=== PATIENT | male | born 1960 | race Caucasian/White ===

== ENCOUNTER 2016-09-23 01:30 | Inpatient (IN) | payer MEDICARE, MEDICAID ==
[~2016-09-23] VITALS: Ht 172.7 cm; Wt 84.8 kg
[2016-09-23] MEDS ORDERED: MORPHINE SULFATE INJ 2 MG/ML DISP.SYRIN IV ONE (02:30)
[2016-09-23] MEDS ORDERED: IV NS 0.9% 500 ML BAG IV ONE (02:30)
[2016-09-23] MEDS ORDERED: ONDANSETRON HCL/PF 4 MG/2 ML VIAL IVP ONE (02:30)
--- NOTE | 2016-09-23 02:30 | NUR ---
Bari june in [facility] - 09/23/16 at 0259 by IRENE PT REC'D MEDICATION ORDERED.
[2016-09-23] MEDS ORDERED: IV SET PRIMARY 1 EA INFUS.SET MC ONE (02:41)
[2016-09-23] MEDS ORDERED: MORPHINE SULFATE INJ 4 MG/ML DISP.SYRIN ONE (02:41)
[2016-09-23] MEDS ORDERED: ONDANSETRON HCL/PF 4 MG/2 ML VIAL ONE (02:41)
[2016-09-23] MEDS ORDERED: IV NS 0.9% 500 ML IV ONE (02:41)
[2016-09-23 02:44] LABS: BASOPHILS % (AUTO) 0.3 % (0.0-2.0); EOSINOPHILS # (AUTO) 0.1 /CMM (0.0-0.7); EOSINOPHILS % (AUTO) 0.7 % (0.0-6.0); HEMATOCRIT 42 % (39-51); LYMPHOCYTES # (AUTO) 1.8 /CMM (0.8-4.8); LYMPHOCYTES % (AUTO) 20.5 % (20.0-44.0); MEAN CORPUSCULAR HEMOGLOBIN 31 PG (26.0-33.0); MEAN CORPUSCULAR HGB CONC 34 g/dl (31.0-36.0); MEAN CORPUSCULAR VOLUME 93 fL (80-96); MONOCYTES % (AUTO) 11.3 % (2.0-12.0); NEUTROPHILS % (AUTO) 67.2 % (43.0-81.0); PLATELET COUNT (AUTO) 170 /CMM (150-450); RDW COEFFICIENT OF VARIATION 11.8 (11.5-15.0); RED BLOOD CELL COUNT(AUTO) 4.48 MIL/uL (4.5-6.0); WHITE BLOOD COUNT (AUTO) 8.9 K/uL (4.3-11.0)
--- NOTE | 2016-09-23 02:47 | NUR ---
PT REC'D MEDICATION ORDERED.
--- NOTE | 2016-09-23 02:50 | NUR ---
CXR DONE AT THE BEDSIDE.
--- NOTE | 2016-09-23 02:56 | NUR ---
PT LEFT FOR CT VIA GURNEY.
[2016-09-23 02:57] LABS: CALCIUM, SERUM 8.8 mg/dL (8.5-10.1); CARBON DIOXIDE 30 mmol/L (21-32); CHLORIDE 100 mmol/L (98-107); CREATININE 1.2 mg/dL (0.6-1.3); GLUCOSE 108 mg/dL (74-106); POTASSIUM 3.7 mmol/L (3.5-5.1); SODIUM SERUM 135 mmol/L (136-145); UREA NITROGEN, BLOOD 15 mg/dL (7-18)
[2016-09-23 03:01] LABS: ALANINE AMINOTRANSFERASE 36 U/L (12-78); ALBUMIN 3.3 g/dL (3.4-5.0); ALKALINE PHOSPHATASE 115 U/L (46-116); ASPARTATE AMINOTRANSFERASE 20 U/L (15-37); BILIRUBIN,DIRECT 0.3 mg/dL (0.0-0.2); BILIRUBIN,TOTAL 1.2 mg/dL (0.2-1.0); LIPASE 82 U/L (73-393); TOTAL PROTEIN, SERUM 7.6 g/dL (6.4-8.2); TROPONIN I < 0.017 ng/mL (0.00-0.056)
--- NOTE | 2016-09-23 03:05 | NUR ---
PT RETURNED FROM CT.
[2016-09-23] MEDS ORDERED: IV NS 0.9% 250 ML IV ONE (03:33)
[2016-09-23] MEDS ORDERED: CT SWABBABLE VALVE TRANS SET 1 EA INFUS.SET MC ONE (03:34)
[2016-09-23] MEDS ORDERED: IOHEXOL-350 100 ML VIAL IV ONE (03:34)
[2016-09-23 03:37] LABS: APPEARANCE,URINE CLEAR (CLEAR); BILIRUBIN,URINE NEGATIVE (NEGATIVE); BLOOD, URINE TRACE-INTA Ery/uL (NEGATIVE); COLOR,URINE YELLOW (YELLOW); KETONES,URINE 1+ (NEGATIVE); LEUKOCYTE ESTERASE ,URINE NEGATIVE (NEGATIVE); NITRITE, URINE NEGATIVE (NEGATIVE); PROTEIN,URINE NEGATIVE (NEGATIVE); UGLUCOSE NEGATIVE (NEGATIVE); UROBILINOGEN,URINE 0.2 EU/dL (0.2)
--- NOTE | 2016-09-23 03:41 | NUR ---
PT LEFT FOR CT VIA GURNEY.
[2016-09-23 03:50] LABS: BACTERIA,URINE None seen /HPF (None Seen); MUCUS,URINE Rare /LPF (None Seen); RBC,URINE NONE SEEN /HPF (0-2); SQUAMOUS EPITHELIAL CELL,UR Few /HPF (None Seen); WBC,URINE NONE SEEN /HPF (0-3)
--- NOTE | 2016-09-23 04:00 | NUR ---
PT RETURNED FROM CT.
--- NOTE | 2016-09-23 04:20 | NUR ---
PT APPEARS TO BE SLEEPING COMFORTABLY. PT'S O2 SAT DROPPED TO 90% ON RA WHILE SLEEPING. PT PLACED ON 2L O2 VIA NC.
[2016-09-23] MEDS ORDERED: IV SET PRIMARY PUMP SET 1 EA INFUS.SET MC ONE ×2 (04:58→13:30)
[2016-09-23] MEDS ORDERED: HEPARIN INFUSION/D5W 500 ML IV ONE (04:59)
[2016-09-23] MEDS ORDERED: HEPARIN SODIUM, PORCINE 5000 UNITS/1 ML VIAL IV ONE ×2 (05:00→05:30)
[2016-09-23] MEDS ORDERED: HEPARIN INFUSION/D5W 500 ML IV PRN (05:00)
[2016-09-23] MEDS ORDERED: LEVO175T7 PO (05:06)
[2016-09-23] MEDS ORDERED: WARF5TAB6 PO (05:06)
[2016-09-23] MEDS ORDERED: HEPARIN SODIUM, PORCINE 5000 UNITS/1 ML VIAL ONE (05:08)
[2016-09-23 05:28] LABS: PROTHROMBIN TIME 10.7 SECS (9.5-12.7)
--- NOTE | 2016-09-23 05:37 | NUR ---
CALLING REPORT TO JUAN PABLO REY
[2016-09-23 06:00] VITALS: BP 121/72
[2016-09-23] MEDS ORDERED: ACETAMINOPHEN 650 MG/SUPP.RECT RC PRN (06:00)
[2016-09-23] MEDS ORDERED: ONDANSETRON HCL/PF 4 MG/2 ML VIAL IVP PRN (06:00)
--- NOTE | 2016-09-23 06:10 | NUR ---
RN NOTE PT ARRIVED ON UNIT, AAOX4, UNDERSTANDS GE[place]GI[place]. NO C/O OF PAIN OR DISCOMFORT AT THIS TIME. NO SOB NOTED. ON 2L NC. TELE ATTACHED - SR. V/S TAKEN. HEPARIN DRIP INFUSING FROM E.R. AT 1550 U/HR. IV SITE INTACT AND PATENT. PT KEPT CLEAN AND COMFORTABLE, ORIENTATED TO UNIT AND CALL LIGHT. WILL F/U WITH DAY SHIFT RN FOR COMPLETION OF ASSESSMENT.
--- NOTE | 2016-09-23 07:40 | NUR ---
CHANNEL OPENER OPENING NOTES RECEIVED PT ON BED AWAKE, ALERT AND ORIENTED X4, UNDERSTANDS JAPANESE. RESPIRATIONS EVEN AND UNLABORED. NO ACUTE DISTRESS NOTED. ON OXYGEN 2L NC. TELE ATTACHED - SR 75. HEPARIN DRIP INFUSING AT 1550 U/HR. IV SITE INTACT AND PATENT. PT KEPT CLEAN AND COMFORTABLE, BED IN LOWEST POSITION, CALL LIGHT WITHIN REACH. WILL CONTINUE TO MONITOR.
[2016-09-23 08:00] VITALS: BP 127/81
[2016-09-23] MEDS: LEVOTHYROXINE SODIUM 175 MCG TABLET PO SCH (09:00)
[2016-09-23] MEDS: PANTOPRAZOLE 40 MG VIAL IV SCH (09:54)
[2016-09-23 11:38] VITALS: BP 125/85
[2016-09-23] MEDS: MORPHINE SULFATE INJ 2 MG/ML DISP.SYRIN IV PRN (13:59)
[2016-09-23] MEDS: Potassium Chloride 20 MEQ in IV D5/0.45 NACL 1,000 ML IV PRN (14:42)
[2016-09-23 16:00] VITALS: BP 119/74
[2016-09-23] MEDS ORDERED: WARFARIN SODIUM 2 MG TABLET PO SCH (17:00)
--- NOTE | 2016-09-23 17:45 | NUR ---
PERSHING MISSILE CREWMEMBER AT BEDSIDE ATTEMPTED BLOOD DRAW 2X.PT INSTRUCTED PERSHING MISSILE CREWMEMBER TO STOP DUE TO SEVERE PAIN BUT PERSHING MISSILE CREWMEMBER CONTINUED AND PT BECAME PALE AND PERSPIRED IN COLD SWEAT.WENT TO CHECK THE PT AND PT IS STILL VERBALLY RESPONSIVE,RESPONSIVE TO TOUCH AND PAIN.BLOOD SUGAR 117.BP 126/80 HR 68 02 SAT 96%.PT VERBALIZED HE'S SCARED OF NEEDLES AND WAS IN SO MUCH PAIN FROM THE NEEDLE DURING BLOOD DRAW.ASSISTED PT IN THE TOILET AFTER.ABLE TO AMBULATE BY HIMSELF WITH STEADY GAIT.
--- NOTE | 2016-09-23 18:00 | NUR ---
CALLED LAB FOR PENDING PTT AND PT-INR RESULT.DIRECTOR WRITING (EXPERT)ARRIVED TO REDRAW BLOOD.
--- NOTE | 2016-09-23 18:14 | NUR ---
US DUPLEX PORTAL VEIN ULTRASOUND WAS DONE. LIMITED STUDY
--- NOTE | 2016-09-23 19:30 | NUR ---
CALLED LAB C/O RONDA AND REMINDED HER OF THE PENDING PT-INR RESULT ORDERED AT [address] REYES STATED THAT THEY WILL TAKE CARE OF IT.
[2016-09-23 19:40] LABS: INR 1.06 (0.87-1.13); PROTHROMBIN TIME 11.4 SECS (9.5-12.7)
[2016-09-23 20:00] VITALS: BP 117/71
--- NOTE | 2016-09-23 20:51 | NUR ---
TELE/RN NOTES NOTIFIED MD MENA PT. STAT US DUPLEX PORTAL ABDOMEN RESULTED AND READ TO MD THE RESULTS; IMPRESSION: NO EVIDENCE OF PORTAL VEIN THROMBOSIS. ALSO NOTIFIED MD MENA THAT HIS ORDER FOR US DOPPLER ABD VEINS WAS CANCELLED BY US TECH A REPEATED ORDER. PER DR. MENA "IT IS NOT A REPEAT ORDER IT IS A DIFFERENT PROCEDURE AND IF THEY HAS A PROBLEM I SHOULD HAVE BEEN NOTIFIED. I WANT IT ORDERED AGAIN STAT AND IF THEY HAVE A PROBLEM WITH IT CALL ME BACK". WILL CARRY OUT ORDER. WILL CONTINUE TO MONITOR.
--- NOTE | 2016-09-23 21:09 | NUR ---
TELE/RN NOTES CALLED RADIOLOGY AND SPOKE WITH TICKET MAKER: PINKY. PER PINKY PREVIOUS TEST WAS CANCELLED A DUPLICATE BECAUSE IT WAS ORDERED FOR THE SAME REASON AND THE SAME STRUCTURES WOULD BE VIEWED IN BOTH TESTS. PER US TECH PINKY SHE WAS UNABLE TO VIEW THE PANCREAS, AORTA, AND MESENTERIC ARTIERIES AND VEINS DUE TO SURROUNDING GI AIR. NOTIFIED HER DR. MENA WANTS STAT US ABD VEINS TO BE PERFORMED. PER PINKY THE TEST WOULD YEILD THE SAME RESULT AND AN ABDOMINAL CT WITH CONTRAST WOULD SHOW BETTER VISUALIZATION. SHE STATED THERE IS NO REASON TO PERFORM THE TEST. CALLED DR. MENA BACK AND NOTIFIED HIM OF WHAT THE TECH STATED AND HE WANTED TO SPEAK TO HER HIMSELF. TRANSFERRED DR. [place] CALL TO US TECH PINKY TO DISCUSS TEST BEING PERFORMED. WILL CONTINUE TO MONITOR.
--- NOTE | 2016-09-23 21:45 | NUR ---
TELE/RN NOTES CALLED RADIOLOGY AND FOLLOWED UP WITH US TECH PINKY. SHE STATED SHE ORDERED A STAT US DOPPLER ABD VEINS PER DR. MENA ORDERS AND WILL BE UP TO PERFORM THE TEST AFTER SHE IS FINISHED IN THE ER. WILL CONTINUE TO MONITOR.
--- NOTE | 2016-09-23 21:56 | NUR ---
TELE/RN NOTES US TECH PINKY ARRIVED TO PERFORM US DOPPLER ABD. VEINS. WILL CONTINUE TO MONITOR.
[2016-09-23] MEDS: HEPARIN INFUSION/D5W 500 ML IV PRN (22:16)
--- NOTE | 2016-09-23 22:37 | NUR ---
ULTRASOUND DOPPLER ABDOMINAL VEINS DONE PER DR. MENA TO REPEAT DUE TO PREVIOUS ULTRASOUND DONE AT 1814 WAS LIMITED, UNABLE TO VISUALIZED MESENTERIC VEIN ON BOTH ULTRASOUNDS
--- NOTE | 2016-09-23 23:50 | NUR ---
TELE/RN NOTES PT. US DOPPLER ABD. VEINS RESULTED. IMPRESSION: NONDIAGNOTIC EXAMINATION. THE SUPERIOR MESENTERIC ARTERY AND VEIN ARE NOT VISUALIZED DUE TO OVERLYING BOWEL GAS. PATENT MAIN PORTAL VEIN WITH HEPATOPETAL FLOW. CALLED TO NOTIFY MD MENA OF RESULTS. UNABLE TO REACH MD MENA. WILL CONTINUE TO MONITOR.
[2016-09-24] VITALS: BP 119/73
--- NOTE | 2016-09-24 01:23 | NUR ---
TELE/RN NOTES RECEIVED PT. LYING IN BED RESTING. PT. IS EASILY AROUSABLE TO NAME. AWAKE, ALERT AND ORIENTED X4. BREATHING EVEN AND UNLABORED. NO SOB, RESPIRATORY DISTRESS OR COMPLAINTS OF PAIN NOTED. PT. WITH EXTERNAL FIRE CLAIMS ADJUSTER PRESENT AND INTACT. CURRENT RHYTHM = SINUS RHYTHM HR 70. PT. WITH HEPARIN DRIP INFUSING AT 1550 UNITS/HR. EDUCATED PT. ON HEPARIN MEDICATION AND TO NOTIFY NURSE OF ANY S/S OF BLEEDING. PT. VERBALIZED UNDERSTANDING. BED IN LOWEST POSITION, CALL LIGHT WITHIN REACH, WILL CONTINUE TO MONITOR. Addendum: 09/24/16 at 0126 by TRACEY MELENDREZ RN INCORRECT TIME. CORRECT TIME: 09/23/16 @ 0778
[2016-09-24] MEDS: MORPHINE SULFATE INJ 2 MG/ML DISP.SYRIN IV PRN ×3 (02:16→18:24)
[2016-09-24 04:00] VITALS: BP 120/81
[2016-09-24] MEDS: Potassium Chloride 20 MEQ in IV D5/0.45 NACL 1,000 ML IV PRN ×2 (05:51→21:57)
[2016-09-24 06:33] LABS: BASOPHILS % (AUTO) 0.3 % (0.0-2.0); EOSINOPHILS # (AUTO) 0.1 /CMM (0.0-0.7); EOSINOPHILS % (AUTO) 0.6 % (0.0-6.0); HEMATOCRIT 41 % (39-51); HEMOGLOBIN 14.2 g/dL (13.5-17.5); LYMPHOCYTES # (AUTO) 2.1 /CMM (0.8-4.8); LYMPHOCYTES % (AUTO) 22.4 % (20.0-44.0); MEAN CORPUSCULAR HEMOGLOBIN 32 PG (26.0-33.0); MEAN CORPUSCULAR HGB CONC 34 g/dl (31.0-36.0); MEAN CORPUSCULAR VOLUME 93 fL (80-96); MONOCYTES % (AUTO) 10.8 % (2.0-12.0); NEUTROPHILS # (AUTO) 6.2 /CMM (1.8-8.9); NEUTROPHILS % (AUTO) 65.9 % (43.0-81.0); PLATELET COUNT (AUTO) 161 /CMM (150-450); RDW COEFFICIENT OF VARIATION 11.9 (11.5-15.0); RED BLOOD CELL COUNT(AUTO) 4.44 MIL/uL (4.5-6.0); WHITE BLOOD COUNT (AUTO) 9.5 K/uL (4.3-11.0)
[2016-09-24 06:45] LABS: INR 1.05 (0.87-1.13); PROTHROMBIN TIME 11.3 SECS (9.5-12.7)
[2016-09-24 06:51] LABS: BILIRUBIN,TOTAL 0.9 mg/dL (0.2-1.0); CALCIUM, SERUM 8.5 mg/dL (8.5-10.1); CREATININE 1.1 mg/dL (0.6-1.3); MAGNESIUM 2.1 mg/dL (1.8-2.4); PHOSPHORUS 3.2 mg/dL (2.5-4.9); TOTAL PROTEIN, SERUM 7.3 g/dL (6.4-8.2)
--- NOTE | 2016-09-24 07:10 | NUR ---
TELE/RN NOTES PT. LYING IN BED RESTING. BREATHING EVEN AND UNLABORED. NO SOB, RESPIRATORY DISTRESS OR COMPLAINTS OF PAIN NOTED. PT. WITH EXTERNAL JAVA DEVELOPER CONSULTANT PRESENT AND INTACT. CURRENT RHYTHM = SINUS RHYTHM HR 73. PT. WITH HEPARIN DRIP INFUSING AT 1550 UNITS/HR. LATEST PTT RESULTED AT 48. NO CHANGE IN HEPARIN INFUSION RATE ACCORDING TO PROTOCOL. ALL PT. NEEDS MET. BED IN LOWEST POSITION, CALL LIGHT WITHIN REACH, WILL ENDORSE TO DAYSHIFT NURSE FOR CONTINUITY OF CARE.
[2016-09-24 07:25] LABS: THYROID STIMULATING HORMONE 1.725 uIU/mL (0.358-3.74)
[2016-09-24 08:00] VITALS: BP 137/100
--- NOTE | 2016-09-24 08:00 | NUR ---
TECHNOLOGY INSTRUCTOR NOTES RECEIVED REPORT FROM PM SHIFT. PATIENT IS CURRENTLY A/OX4. NO S/S OF ACUTE DISTRESS OR SOB NOTED. PATIENT DENIES PAIN AT THIS TIME. PATIENT ON MONITOR- CURRENT RHYTHM AT SR 76. PATIENT IV ON LEFT AC PATENT AND INTACT, HEPARIN DRIP RUNNING AT 1550 UNITS/HR. NO S/S OF BLEEDING NOTED. NO CHANGE IN HEPARIN INFUSION RATE PER PROTOCOL. PATIENT IV ON RIGHT FOREARM INTACT AND PATENT. BED IS IN LOW LOCKED POSITION. CALL LIGHT WITHIN REACH. WILL CONTINUE TO MONITOR THROUGHOUT SHIFT.
[2016-09-24] MEDS: PANTOPRAZOLE 40 MG VIAL IV SCH (09:14)
[2016-09-24] MEDS: SIMETHICONE 80 MG TAB.CHEW PO PRN ×2 (09:31→14:47)
[2016-09-24] MEDS: LEVOTHYROXINE SODIUM 175 MCG TABLET PO SCH (09:31)
[2016-09-24] MEDS ORDERED: SECONDARY IV SET 1 EA INFUS.SET MC ONE (13:45)
[2016-09-24] MEDS ORDERED: IV SET PRIMARY PUMP SET 1 EA INFUS.SET MC ONE (13:50)
[2016-09-24] MEDS: HEPARIN INFUSION/D5W 500 ML IV PRN (13:51)
[2016-09-24 16:00] VITALS: BP 124/84
[2016-09-24] MEDS ORDERED: NA PHOS,M-B/NA PHOS,DI-BA 1 EA ENEMA RC ONE (17:30)
[2016-09-24] MEDS: DOCUSATE SODIUM 100 MG CAPSULE PO SCH (17:56)
--- NOTE | 2016-09-24 19:08 | NUR ---
MS RN NOTES PATIENT IS CURRENTLY A/OX4. PATIENT IS EXHIBITING ABDOMINAL PAIN. MORPHINE WAS GIVEN AND PATIENT STATED IT HELPED A LITTLE BUT HE STILL FEELS CONSTIPATED. NO S/S OF SOB NOTED. PATIENT IV ON LEFT FOREARM IS INTACT AND PATENT: HEPARIN DRIP RUNNING AT 1550 UNITS/HR (31ML/HR). NO S/S OF BLEEDING NOTED. PATIENT IV ON RIGHT FOREARM INTACT AND PATENT. BED IS IN LOWEST LOCKED POSITION. CALL LIGHT WITHIN REACH. WILL ENDORSE CARE TO PM SHIFT.
--- NOTE | 2016-09-24 19:15 | NUR ---
RN OPEN NOTES RECEIVED PATIENT AWAKE IN BED WITH FAMILY AT BEDSIDE. A/O X4. NO SIGNS OF DISTRESS OR DISCOMFORT. BREATHING EVEN AND UNLABORED. PATIENT STATES HE HAS ABD PAIN 8/10, WAS GIVEN MORPHINE AT 1624 AND STATES IT HAS HELPED A LITTLE. IV ACCESS IN RFA WITH D5W1/2NSKCL RUNNING AND LAC WITH HEPARIN DRIP RUNNING 1550U/HR, INTACT AND PATENT, NO SIGNS OF REDNESS OR INFILTRATION. NO S/S OF BLEEDING. BED IN LOW LOCKED POSITION WITH SIDE RAILS X2. CALL LIGHT WITHIN REACH. WILL CONTINUE TO MONITOR.
[2016-09-24 20:00] VITALS: BP 136/97
--- NOTE | 2016-09-24 22:10 | NUR ---
RN NOTES DR. MENA IN TO SEE PATIENT.
[2016-09-24] MEDS ORDERED: HEPARIN INFUSION/D5W 500 ML IV PRN (22:30)
--- NOTE | 2016-09-25 06:45 | NUR ---
RN CLOSING NOTES PATIENT AWAKE IN BED. A/O X4. NO SIGNS OF DISTRESS OR DISCOMFORT. BREATHING EVEN AND UNLABORED. PAIN IS AT TOLERABLE LEVEL 4/10 IN ABD. IV ACCESS IN RFA WITH D5W1/2NS 2O MEQ KCL RUNNING AND LAC WITH HEPARIN DRIP RUNNING 1550U/HR, INTACT AND PATENT, NO SIGNS OF REDNESS OR INFILTRATION. NO S/S OF BLEEDING. N SIGNIFICANT CHANGES THROUGH THE NIGHT. ALL NEEDS MET. BED IN LOW LOCKED POSITION WITH SIDE RAILS X2. CALL LIGHT WITHIN REACH. WILL ENDORSE TO AM SHIFT FOR CAMRON. .
[2016-09-25 07:14] LABS: INR 1.09 (0.87-1.13); PROTHROMBIN TIME 11.7 SECS (9.5-12.7)
[2016-09-25 07:21] LABS: CALCIUM, SERUM 8.4 mg/dL (8.5-10.1); CREATININE 1.1 mg/dL (0.6-1.3); MAGNESIUM 1.9 mg/dL (1.8-2.4); PHOSPHORUS 3.4 mg/dL (2.5-4.9); POTASSIUM 3.5 mmol/L (3.5-5.1)
--- NOTE | 2016-09-25 07:45 | NUR ---
MS RN NOTES PATIENT IS A/OX4. NO ACUTE DISTRESS NOTED. NO SOB NOTED. PATIENT IS SITTING UP IN BED AND DENIES PAIN AT THIS TIME. RIGHT AC IV PATENT AND INTACT. LEFT AC IV PATENT AND INTACT, HEPARIN DRIP RUNNING AT 1550 UNITS/HR. NO S/S OF BLEEDING NOTED. CALL LIGHT WITHIN REACH. BED IS IN LOWEST LOCKED POSITION. WILL CONTINUE TO MONITOR THROUGHOUT SHIFT.
[2016-09-25 08:00] VITALS: BP 113/87
[2016-09-25 08:11] LABS: BASOPHILS % (AUTO) 0.4 % (0.0-2.0); EOSINOPHILS % (AUTO) 0.4 % (0.0-6.0); HEMATOCRIT 40 % (39-51); HEMOGLOBIN 13.5 g/dL (13.5-17.5); LYMPHOCYTES # (AUTO) 1.2 /CMM (0.8-4.8); LYMPHOCYTES % (AUTO) 17.3 % (20.0-44.0); MEAN CORPUSCULAR HEMOGLOBIN 31 PG (26.0-33.0); MEAN CORPUSCULAR HGB CONC 34 g/dl (31.0-36.0); MEAN CORPUSCULAR VOLUME 93 fL (80-96); MONOCYTES # (AUTO) 0.6 /CMM (0.1-1.30); MONOCYTES % (AUTO) 9.4 % (2.0-12.0); NEUTROPHILS % (AUTO) 72.5 % (43.0-81.0); PLATELET COUNT (AUTO) 176 /CMM (150-450); WHITE BLOOD COUNT (AUTO) 6.9 K/uL (4.3-11.0)
[2016-09-25] MEDS ORDERED: HEPARIN SODIUM, PORCINE 5000 UNITS/1 ML VIAL IV ONE (08:30)
[2016-09-25] MEDS ORDERED: IV SET PRIMARY PUMP SET 1 EA INFUS.SET MC ONE ×2 (08:31→14:26)
[2016-09-25] MEDS: DOCUSATE SODIUM 100 MG CAPSULE PO SCH ×2 (08:38→18:05)
[2016-09-25] MEDS: LEVOTHYROXINE SODIUM 175 MCG TABLET PO SCH (08:38)
[2016-09-25] MEDS: HEPARIN INFUSION/D5W 500 ML IV PRN (08:49)
[2016-09-25] MEDS: PANTOPRAZOLE 40 MG VIAL IV SCH (08:56)
[2016-09-25] MEDS ORDERED: DOCUSATE SODIUM 100 MG CAPSULE PO SCH (09:00)
--- NOTE | 2016-09-25 14:00 | NUR ---
MS RN NOTES PATIENT AND PATIENT'S FAMILY MEMBERS SPOKE TO DR. THOMAS REGARDING PATIENT'S PLAN OF CARE.
[2016-09-25] MEDS: Potassium Chloride 20 MEQ in IV D5/0.45 NACL 1,000 ML IV PRN (14:27)
--- NOTE | 2016-09-25 14:30 | NUR ---
MS RN NOTES PATIENT'S URINE WAS OF REDDISH/ROBERT DISCOLORATION. MD MADE AWARE. CHARGE NURSE MADE AWARE. WILL CONTINUE TO MONITOR.
--- NOTE | 2016-09-25 15:00 | NUR ---
MS RN NOTES APTT, PT, INR LAB RESULTS IN. PATIENT'S APTT WAS AT 60. NO CHANGES MADE TO HEPARIN DRIP SINCE IT IS THERAPEUTIC.
[2016-09-25 16:00] VITALS: BP 123/80
[2016-09-25 16:22] LABS: INR 1.12 (0.87-1.13); PROTHROMBIN TIME 12.1 SECS (9.5-12.7)
[2016-09-25] MEDS: RIVAROXABAN 10 MG TABLET PO SCH (18:06)
--- NOTE | 2016-09-25 18:59 | NUR ---
MS RN NOTES PATIENT IS CURRENTLY A/OX4. NO S.S OF DISTRESS NOTED. NO S/S OF SOB NOTED. PATIENT DENIES PAIN. PATIENT IV ON LEFT AC PATENT AND INTACT. HEPARIN DRIP CURRENTLY RUNNING AT 1700 UNITS/HR (34ML/HR). NO S/S OF BLEEDING NOTED. IV ON RIGHT AC PATENT AND INTACT. ALL PATIENT NEEDS HAVE BEEN MET. BED IS IN LOWEST LOCKED POSITION. CALL LIGHT WITHIN REACH. WILL ENDORSE CARE TO PM SHIFT.
--- NOTE | 2016-09-25 19:15 | NUR ---
RN OPEN NOTES RECEIVED PATIENT AWAKE IN BED. A/O X4. NO SIGNS OF DISTRESS OR DISCOMFORT. BREATHING EVEN AND UNLABORED. DENIES ANY PAIN AT THIS TIME. IV ACCESS IN RAC WITH D5W1/2NSKCL RUNNING AND LAC WITH HEPARIN DRIP RUNNING 1700U/HR, INTACT AND PATENT, NO SIGNS OF REDNESS OR INFILTRATION. PER ISHMAEL ALMEIDA PLAN IS TO D/C HEPARIN DRIP AT 2200. NO S/S OF BLEEDING. BED IN LOW LOCKED POSITION WITH SIDE RAILS X2. CALL LIGHT WITHIN REACH. WILL CONTINUE TO MONITOR.
[2016-09-25 20:00] VITALS: BP 119/84
--- NOTE | 2016-09-25 22:11 | NUR ---
RN NOTES SPOKE WITH DR. MENA TO CLARIFY D/C ORDER FOR HEPARIN AT 2200. PER RAJESH D/C HEPARIN AT 0600 INSTEAD. WILL CARRYOUT ORDERS AND CONTINUE TO MONITOR.
--- NOTE | 2016-09-25 23:44 | NUR ---
RN NOTES SPOKE WITH RAJESH. INFORMED HIM THE PHARMACY HAS ALREADY D/C'D THE HEPARIN IN THE E-MAR AND I AM UNABLE TO HANG A NEW BAG WITHOUT INPUTTING A NEW ORDER FOR THE HEPARIN AND ALSO PATIENT IS CONCERNED ABOUT RECEIVING HEPARIN ALONG WITH GETTING XARELTO, HE WAS TOLD THE HEPARIN WOULD BE D/C'D AT 2200 BECAUSE HE IS NOW GOING TO BE TAKING XARELTO. PER RAJESH, OK TO D/C HEPARIN DRIP AFTER 2200 PREVIOUSLY ORDERED. CHARGE NURSE AWARE. WILL CARRYOUT ORDERS AND CONTINUE TO MONITOR.
[2016-09-26] MEDS ORDERED: IV SET PRIMARY PUMP SET 1 EA INFUS.SET MC ONE (05:27)
[2016-09-26] MEDS: Potassium Chloride 20 MEQ in IV D5/0.45 NACL 1,000 ML IV PRN (05:33)
--- NOTE | 2016-09-26 06:44 | NUR ---
RN CLOSING NOTES PATIENT RESTING IN BED, EASILY AROUSABLE TO NAME. A/O X4. NO SIGNS OF DISTRESS OR DISCOMFORT. BREATHING EVEN AND UNLABORED. DENIES ANY PAIN AT THIS TIME. IV ACCESS IN LAC AND RAC WITH D5W1/2NS 2O MEQ KCL RUNNING, INTACT AND PATENT, NO SIGNS OF REDNESS OR INFILTRATION. NO SIGNIFICANT CHANGES THROUGH THE NIGHT. ALL NEEDS MET. BED IN LOW LOCKED POSITION WITH SIDE RAILS X2. CALL LIGHT WITHIN REACH. WILL ENDORSE TO AM SHIFT FOR CAMRON. .
[2016-09-26 08:00] VITALS: BP 129/80
--- NOTE | 2016-09-26 08:00 | NUR ---
MS RN AM NOTES PATIENT A/O X4. NO SIGNS OF DISTRESS OR DISCOMFORT. BREATHING EVEN AND UNLABORED. DENIES ANY PAIN AT THIS TIME. IV ACCESS IN LAC AND RAC WITH D5W1/2NS 2O MEQ KCL RUNNING, INTACT AND PATENT, NO SIGNS OF REDNESS OR INFILTRATION. NO SIGNIFICANT CHANGES.NEEDS MET. BED IN LOW LOCKED POSITION WITH SIDE RAILS X2. CALL LIGHT WITHIN REACH.
[2016-09-26] MEDS: LEVOTHYROXINE SODIUM 175 MCG TABLET PO SCH (09:00)
[2016-09-26] MEDS: DOCUSATE SODIUM 100 MG CAPSULE PO SCH ×2 (09:00→17:27)
[2016-09-26] MEDS: PANTOPRAZOLE 40 MG VIAL IV SCH (09:52)
[2016-09-26 12:05] LABS: INR 1.16 (0.87-1.13); PROTHROMBIN TIME 12.5 SECS (9.5-12.7)
[2016-09-26 16:00] VITALS: BP 118/71
[2016-09-26] MEDS: RIVAROXABAN 10 MG TABLET PO SCH (17:32)
--- NOTE | 2016-09-26 18:00 | NUR ---
PT SAT IN THE CHAIR AND JUST FINISHED MAKING XL BOWEL MOVEMENT-SOFT BROWN BM.DENIES PAIN OR DISTRESS.CALL LIGHT PLACED WITHIN REACH.
--- NOTE | 2016-09-26 19:15 | NUR ---
RN OPEN NOTES RECEIVED PATIENT SITTING IN CHAIR. A/O X4. NO SIGNS OF DISTRESS OR DISCOMFORT. BREATHING EVEN AND UNLABORED. DENIES ANY PAIN AT THIS TIME. IV ACCESS IN LAC AND RAC WITH D5W1/2NSKCL RUNNING, INTACT AND PATENT, NO SIGNS OF REDNESS OR INFILTRATION. BED IN LOW LOCKED POSITION WITH SIDE RAILS X2. CALL LIGHT WITHIN REACH. WILL CONTINUE TO MONITOR.
[2016-09-26 20:00] VITALS: BP 120/74
[2016-09-27] MEDS: Potassium Chloride 20 MEQ in IV D5/0.45 NACL 1,000 ML IV PRN ×2 (05:58→21:07)
--- NOTE | 2016-09-27 07:03 | NUR ---
RN CLOSING NOTES PATIENT RESTING IN BED, EASILY AROUSABLE TO NAME. A/O X4. NO SIGNS OF DISTRESS OR DISCOMFORT. BREATHING EVEN AND UNLABORED. DENIES ANY PAIN AT THIS TIME. IV ACCESS IN RAC AND LAC WITH D5W1/2NS 2O MEQ KCL RUNNING, INTACT AND PATENT, NO SIGNS OF REDNESS OR INFILTRATION. NO SIGNIFICANT CHANGES THROUGH THE NIGHT. ALL NEEDS MET. BED IN LOW LOCKED POSITION WITH SIDE RAILS X2. CALL LIGHT WITHIN REACH. WILL ENDORSE TO AM SHIFT FOR CAMRON. .
[2016-09-27 07:51] LABS: BASOPHILS % (AUTO) 0.5 % (0.0-2.0); EOSINOPHILS # (AUTO) 0.1 /CMM (0.0-0.7); EOSINOPHILS % (AUTO) 1.7 % (0.0-6.0); HEMATOCRIT 42 % (39-51); HEMOGLOBIN 14.2 g/dL (13.5-17.5); LYMPHOCYTES # (AUTO) 1.4 /CMM (0.8-4.8); LYMPHOCYTES % (AUTO) 31.3 % (20.0-44.0); MEAN CORPUSCULAR HEMOGLOBIN 32 PG (26.0-33.0); MEAN CORPUSCULAR HGB CONC 34 g/dl (31.0-36.0); MEAN CORPUSCULAR VOLUME 93 fL (80-96); MONOCYTES % (AUTO) 21.6 % (2.0-12.0); NEUTROPHILS % (AUTO) 44.9 % (43.0-81.0); PLATELET COUNT (AUTO) 160 /CMM (150-450); RDW COEFFICIENT OF VARIATION 11.9 (11.5-15.0); RED BLOOD CELL COUNT(AUTO) 4.49 MIL/uL (4.5-6.0); WHITE BLOOD COUNT (AUTO) 4.6 K/uL (4.3-11.0)
[2016-09-27 08:00] VITALS: BP 115/80
--- NOTE | 2016-09-27 08:00 | NUR ---
MS RN NOTES RECEIVED REPORT WITH PATIENT SITTING UP IN BED. PATIENT IS A/OX4. NO SOB OR ANY S/S OF ACUTE DISTRESS NOTED. IV'S ARE PATENT AND INTACT. PATIENT DENIES PAIN AT THIS TIME. BED IS IN LOW LOCKED POSITION. CALL LIGHT WITHIN REACH. WILL CONTINUE TO MONITOR THROUGHOUT SHIFT.
[2016-09-27 08:30] LABS: CALCIUM, SERUM 8.6 mg/dL (8.5-10.1); MAGNESIUM 1.8 mg/dL (1.8-2.4); PHOSPHORUS 3.5 mg/dL (2.5-4.9); POTASSIUM 3.9 mmol/L (3.5-5.1)
[2016-09-27] MEDS: PANTOPRAZOLE 40 MG VIAL IV SCH (08:44)
[2016-09-27] MEDS: LEVOTHYROXINE SODIUM 175 MCG TABLET PO SCH (08:44)
[2016-09-27] MEDS: DOCUSATE SODIUM 100 MG CAPSULE PO SCH ×2 (08:44→17:35)
[2016-09-27 09:36] LABS: BAND % (MANUAL) 2 % (0.0-5.0); EOSINOPHILS % (MANUAL) 2 % (0-4); LYMPHOCYTES % (MANUAL) 34 % (16-48); MONOCYTES % (MANUAL) 17 % (0-11.0); NEUTROPHILS % (MANUAL) 45 (42-76)
--- NOTE | 2016-09-27 10:46 | NUR ---
SPOKE WITH RN. PATIENT ATE BREAKFAST AT 0800. AWAITING CONSENT FOR COMPUTED TOMOGRAPHY ABDOMEN PELVIS WITH CONTRAST. RN WILL CALL BACK TO CONFIRM CONSENT.
[2016-09-27] MEDS ORDERED: CT SWABBABLE VALVE TRANS SET 1 EA INFUS.SET MC ONE (12:26)
[2016-09-27] MEDS ORDERED: IOHEXOL-300 100 ML VIAL IV ONE (12:26)
[2016-09-27] MEDS ORDERED: IV NS 0.9% 250 ML IV ONE (12:26)
--- NOTE | 2016-09-27 13:30 | NUR ---
MS RN NOTES RECEIVED CALL FROM DR. MENA THAT HE WANTS TO SCHEDULE A COLONSCOPY FOR PATIENT MONDAY AROUND 8 AM. AWAITING FURTHER ORDERS
[2016-09-27 16:00] VITALS: BP 113/76
--- NOTE | 2016-09-27 16:00 | NUR ---
MS RN NOTES PATIENT IS REQUESTING TO BE DISCHARGED AND STATED THAT HE DOES NOT WANT TO WAIT FOR COLONOSCOPY. EXPLAINED THE RISKS OF LEAVING AND PATIENT VERBALIZED UNDERSTANDING. PATIENT SEEN BY PHU AND AGREED TO STAY.
[2016-09-27] MEDS ORDERED: RIVA10TA PO (16:16)
[2016-09-27] MEDS ORDERED: METR500T PO (16:25)
[2016-09-27] MEDS: METRONIDAZOLE 500 MG TABLET PO SCH ×2 (17:35→21:01)
[2016-09-27] MEDS: RIVAROXABAN 10 MG TABLET PO SCH (17:36)
--- NOTE | 2016-09-27 19:00 | NUR ---
MS RN NOTES CALLED DR. MENA TO EXPLAIN THAT PATIENT WOULD LIKE TO STAY FOR RECOMMENDED COLONOSCOPY. ORDERS RECEIVED TO START ON CLEAR LIQUID DIET, START GO LIGHTLY TOMORROW AT 10 AM AND TO DRINK 10 OZ Q 15MIN X 12, AND TO LET DR. MENA KNOW BY 4 PM IF STOOLS ARE STILL NOT CLEAR. WILL INPUT ORDERS.
--- NOTE | 2016-09-27 19:10 | NUR ---
MS RN NOTES PATIENT IS A/OX4. NO SOB. NO DISTRESS. IV PATENT AND INTACT. CALL LIGHT WITHIN REACH. BED IS IN LOW LOCKED POSITION. ALL PATIENT NEEDS HAVE BEEN MET. WILL ENDORSE CARE TO PM SHIFT.
--- NOTE | 2016-09-27 19:30 | NUR ---
MS RN INITIAL NOTE RECEIVED PT AWAKE AND ALERT, ORIENTED X4, NO COMPLAINT OF PAIN OR RESPIRATORY DISTRESS NOTED, PT IS ABLE TO AMBULATE INDEPENDENTLY, PT SCHEDULE TO UNDERGO A COLONOSCOPY THURS PER DOCTOR RAJESH, PT IS CLEAN/DRY AND COMFORTABLE, NEEDS WILL BE ANTICIPATED AND ATTENDED TO PROMPTLY.
[2016-09-27 20:00] VITALS: BP 112/72
[2016-09-27] MEDS: CIPROFLOXACIN IV RTU 400 MG in PREMIX 1 EA IV SCH (21:00)
[2016-09-27] MEDS ORDERED: SECONDARY IV SET 1 EA INFUS.SET MC ONE (21:01)
[2016-09-28] MEDS: METRONIDAZOLE 500 MG TABLET PO SCH ×3 (04:49→22:34)
[2016-09-28 07:25] LABS: CALCIUM, SERUM 8.4 mg/dL (8.5-10.1); CREATININE 1.1 mg/dL (0.6-1.3); PHOSPHORUS 3.5 mg/dL (2.5-4.9); POTASSIUM 3.7 mmol/L (3.5-5.1)
--- NOTE | 2016-09-28 07:27 | NUR ---
MS RN CLOSING NOTE PT REMAINED STABLE DURING TOUR MANAGER, NO SIGNIFICANT CHANGES OF CONDITION NOTED, WILL ENDORSE TO INCOMING NURSE FOR CAMRON.
[2016-09-28 07:30] LABS: BASOPHILS % (AUTO) 0.5 % (0.0-2.0); EOSINOPHILS # (AUTO) 0.2 /CMM (0.0-0.7); EOSINOPHILS % (AUTO) 3.1 % (0.0-6.0); HEMATOCRIT 42 % (39-51); HEMOGLOBIN 14.1 g/dL (13.5-17.5); LYMPHOCYTES # (AUTO) 1.7 /CMM (0.8-4.8); LYMPHOCYTES % (AUTO) 31.1 % (20.0-44.0); MEAN CORPUSCULAR HEMOGLOBIN 31 PG (26.0-33.0); MEAN CORPUSCULAR HGB CONC 34 g/dl (31.0-36.0); MEAN CORPUSCULAR VOLUME 92 fL (80-96); MONOCYTES # (AUTO) 0.9 /CMM (0.1-1.30); MONOCYTES % (AUTO) 17.3 % (2.0-12.0); NEUTROPHILS # (AUTO) 2.6 /CMM (1.8-8.9); PLATELET COUNT (AUTO) 163 /CMM (150-450); RDW COEFFICIENT OF VARIATION 11.7 (11.5-15.0); RED BLOOD CELL COUNT(AUTO) 4.52 MIL/uL (4.5-6.0); WHITE BLOOD COUNT (AUTO) 5.4 K/uL (4.3-11.0)
--- NOTE | 2016-09-28 07:40 | NUR ---
MS RN OPENING NOTES RECEIVED PT. FROM NIGHTSHIFT NURSE IN STABLE CONDITION, SITTING COMFORTABLY IN BED. A/O X4. NO SOB OR SIGNS OF DISTRESS NOTED. DENIES PAIN AT THIS TIME. IV PRESENT ON RIGHT AC 18 PATENT AND INTACT INFUSING KCL 20MEQ IN D5 1/5 NS @ 70ML/HR. PT. TOLERATING INFUSION WELL. NO REDNESS OR SIGNS OF INFILTRATION NOTED. BED IN LOW LOCKED POSITION, SIDE RAILS UP X2, CALL LIGHT WITHIN REACH. WILL CONTINUE TO MONITOR.
[2016-09-28 08:00] VITALS: BP 112/76
[2016-09-28] MEDS: PANTOPRAZOLE 40 MG VIAL IV SCH (08:52)
[2016-09-28] MEDS: LEVOTHYROXINE SODIUM 175 MCG TABLET PO SCH (08:52)
[2016-09-28] MEDS: CIPROFLOXACIN IV RTU 400 MG in PREMIX 1 EA IV SCH ×2 (08:52→21:32)
[2016-09-28] MEDS: DOCUSATE SODIUM 100 MG CAPSULE PO SCH ×2 (08:52→17:39)
[2016-09-28] MEDS ORDERED: PEG 3350/NA SULF,BICARB,CL/KCL 4,000 ML BOTTLE PO ONE (10:00)
[2016-09-28] MEDS: Potassium Chloride 20 MEQ in IV D5/0.45 NACL 1,000 ML IV PRN (15:40)
[2016-09-28 16:36] VITALS: BP 111/77
[2016-09-28] MEDS: RIVAROXABAN 10 MG TABLET PO SCH (17:00)
--- NOTE | 2016-09-28 17:05 | NUR ---
MS RN NOTES DR. MENA WAS CALLED REGARDING PT.'S [address] MENA, HOLD [address] DUE TO POSSIBLE BIOPSY DURING SCHEDULED AM COLONOSCOPY.
--- NOTE | 2016-09-28 19:30 | NUR ---
MS RN OPENING NOTES RECEIVED REPORT FROM DAY NURSE, PT IS IN STABLE CONDITION, SITTING COMFORTABLY IN BED. A/O X4. NO SOB OR SIGNS OF DISTRESS NOTED. DENIES PAIN AT THIS TIME. IV ACCESS NEEDED TO BE CHANGED DUE TO LEAKING, NEW IV IN RIGHT FOREARM. PT HAS GOLYTELY AT BEDSIDE AND DRINKING IT. BED IN LOW LOCKED POSITION, SIDE RAILS UP X2, CALL LIGHT WITHIN REACH. WILL CONTINUE TO MONITOR.
--- NOTE | 2016-09-28 19:35 | NUR ---
MS RN CLOSING NOTES PT. IN STABLE CONDITION. CURRENTLY CONTINUING GOLYTLY SOLUTION. PT. IS TOLERATING SOLUTION WELL. ALL NEEDS MET DURING SHIFT AND ORDERS CARRIED OUT ACCORDINGLY. WILL ENDORSE TO NIGHTSHIFT NURSE FOR CAMRON
[2016-09-28 20:00] VITALS: BP 124/82
[2016-09-28 20:41] VITALS: BP 124/82
--- NOTE | 2016-09-28 21:00 | NUR ---
RN NOTES: PT ON GOLYTELY, ENCOURAGE TO DRINK THE FLUID AND INSTRUCTED ON NPO POST MIDNIGHT WHICH PT AGREE, ALSO PT ALMOST RESIDENTIAL FINISH WITH THE DRINK/GOLYTELY. SO FAR BM IS CLEAR WITH FEW MUCOIDS,
--- NOTE | 2016-09-28 21:30 | NUR ---
consent for procedure: pt for colonoscopy egd in am, consent secured by day rn,
[2016-09-29] MEDS: METRONIDAZOLE 500 MG TABLET PO SCH ×2 (04:18→13:39)
--- NOTE | 2016-09-29 06:51 | NUR ---
MS/RN CLOSING NOTES PATIENT IS LAYING DOWN IN BED. GOLYTELY WAS COMPLETED,BM CLEAR NOW AND PT WAS NPO STARTING MIDNIGHT. CONSENT AND PREOP CHECKLIST HAVE BEEN SIGNED, COMPLETED AND PUT IN THE CHART.IV ACCESS IS PATENT AND INTACT WITH KCL WITH D5 1/2 NS RUNNING AT 70 ML/HR. WILL ENDORSE CARE TO AM SHIFT
[2016-09-29 07:01] LABS: BASOPHILS % (AUTO) 0.3 % (0.0-2.0); EOSINOPHILS # (AUTO) 0.1 /CMM (0.0-0.7); HEMATOCRIT 41 % (39-51); HEMOGLOBIN 14.1 g/dL (13.5-17.5); LYMPHOCYTES % (AUTO) 37.7 % (20.0-44.0); MEAN CORPUSCULAR HEMOGLOBIN 32 PG (26.0-33.0); MEAN CORPUSCULAR HGB CONC 34 g/dl (31.0-36.0); MEAN CORPUSCULAR VOLUME 92 fL (80-96); MONOCYTES # (AUTO) 0.7 /CMM (0.1-1.30); MONOCYTES % (AUTO) 13.1 % (2.0-12.0); NEUTROPHILS # (AUTO) 2.5 /CMM (1.8-8.9); NEUTROPHILS % (AUTO) 46.9 % (43.0-81.0); PLATELET COUNT (AUTO) 174 /CMM (150-450); RDW COEFFICIENT OF VARIATION 11.9 (11.5-15.0); RED BLOOD CELL COUNT(AUTO) 4.47 MIL/uL (4.5-6.0); WHITE BLOOD COUNT (AUTO) 5.3 K/uL (4.3-11.0)
[2016-09-29 07:13] LABS: INR 1.08 (0.87-1.13); PROTHROMBIN TIME 11.6 SECS (9.5-12.7)
[2016-09-29 07:24] LABS: CALCIUM, SERUM 8.6 mg/dL (8.5-10.1); CREATININE 1.1 mg/dL (0.6-1.3); POTASSIUM 4.1 mmol/L (3.5-5.1)
--- NOTE | 2016-09-29 07:37 | NUR ---
MS RN OPENING NOTES RECEIVED PATIENT IN BED, AWAKE AND ORIENTED X4, STABLE. NO ACUTE DISTRESS NOTED, NO SOB OR SIGNS OF DISCOMFORT NOTED. DENIES PAIN AT THIS TIME. PATIENT NPO, PENDING COLONOSCOPY. IV TO RIGHT FA INTACT AND PATIENT INFUSING KCL D5 1/2 NS AT 70ML/HR. SAFETY MEASURES RENDERED, BED IN LOW LOCKED POSITION, SIDE RAILS UP X2, CALL LIGHT WITHIN REACH. WILL CONTINUE TO MONITOR.
[2016-09-29 08:00] VITALS: BP 108/80
[2016-09-29] MEDS ORDERED: CIPR-262 PO (09:41)
[2016-09-29] MEDS: CIPROFLOXACIN IV RTU 400 MG in PREMIX 1 EA IV SCH (10:46)
[2016-09-29] MEDS: DOCUSATE SODIUM 100 MG CAPSULE PO SCH (10:49)
[2016-09-29] MEDS: LEVOTHYROXINE SODIUM 175 MCG TABLET PO SCH (10:49)
[2016-09-29] MEDS: PANTOPRAZOLE 40 MG VIAL IV SCH (10:49)
--- NOTE | 2016-09-29 11:40 | NUR ---
MS/RN NOTES PATIENT TAKEN DOWN FOR COLONOSCOPY.
[2016-09-29] MEDS: RIVAROXABAN 10 MG TABLET PO SCH (14:04)
--- NOTE | 2016-09-29 16:45 | NUR ---
MS/RN NOTES ALL DISCHARGE FORMS COMPLETED, SIGNED AND COPIED. ALL DISCHARGE INSTRUCTIONS GIVEN TO PATIENT AND FAMILY. REVIEWED PRESCRIPTION ORDER BY DOCTOR AND DISCHARGE ORDERS. PATIENT AND VERBALIZED UNDERSTANDING OF INSTRUCTIONS GIVEN. IV REMOVED AND COVERED WITH 4X4. PATIENT LEFT VIA PRIVATE CAR ESCORTED BY UPPERS EDGE BURNISHER.
== END 2016-09-29 16:45 | disposition home or self-care (01) | DRG 442 ==
LOC: ER 01:31 → TELE 05:11 → MED 09-24 10:45
PROVIDERS: ADMIT Internal Medicine; ATTEND Internal Medicine
PROC: 0DBH8ZX Excision of Cecum, Via Natural or Artificial Opening Endoscopic, Diagnostic (ICD-10-PCS; principal; 2016-09-29 11:30)
DX: I81 Portal vein thrombosis (principal); D68.59 Other primary thrombophilia; Z86.718 Personal history of other venous thrombosis and embolism; Z79.01 Long term (current) use of anticoagulants; E89.0 Postprocedural hypothyroidism; I48.91 Unspecified atrial fibrillation; Z86.73 Personal history of transient ischemic attack (TIA), and cerebral infarction without residual deficits; K40.90 Unilateral inguinal hernia, without obstruction or gangrene, not specified as recurrent; Z91.14 Patient's other noncompliance with medication regimen; Z68.28 Body mass index [BMI] 28.0-28.9, adult; E66.3 Overweight; I10 Essential (primary) hypertension; Z79.899 Other long term (current) drug therapy; E78.5 Hyperlipidemia, unspecified; R94.8 Abnormal results of function studies of other organs and systems; K76.0 Fatty (change of) liver, not elsewhere classified
CPT/HCPCS: 36415; 71010-TC; 80048-TC; 80053-TC; 80061-TC; 80076-TC; 81000-TC; 82962-TC; 83690-TC; 83735-TC; 84100-TC; 84443-TC; 84484-TC; 85025-TC; 85610-TC; 85730-TC; 87081-TC; 88305-TC; 93976-TC; 93979-TC; A4216; A4606; C9113; J0744; J1644; J2270; J2405; J2704; J3480; J3490; J7040; J7050; Q9967; Z7610